=== PATIENT | female | born 1950 | race Caucasian/White ===

== ENCOUNTER 2021-10-18 06:28 | Inpatient (IN) | payer MEDICARE, OTHER ==
[2021-10-12 11:54] LABS: BASOPHILS % (AUTO) 0.8 % (0-1); EOSINOPHILS # (AUTO) 0.2 X10'3 (0-0.9); EOSINOPHILS % (AUTO) 2.5 % (0-6); LYMPHOCYTES # (AUTO) 2.6 X10'3 (1.1-4.8); LYMPHOCYTES % (AUTO) 40.4 % (21-51); MEAN CORPUSCULAR HEMOGLOBIN 29.5 PG (27.0-31.0); MEAN CORPUSCULAR HGB CONC 33.2 g/dL (33.0-36.5); MEAN CORPUSCULAR VOLUME 88.9 FL (78-98); MEAN PLATELET VOLUME 8.1 FL (7.4-10.4); MONOCYTES # (AUTO) 0.6 X10'3 (0-0.9); MONOCYTES % (AUTO) 9.8 % (2-12); NEUTROPHILS % (AUTO) 46.5 % (42-75); PRE OP HEMATOCRIT 42.7 % (35.0-45.0); PRE OP HEMOGLOBIN 14.2 g/dL (12.0-16.0); PRE OP PLATELET COUNT 325 X10'3 (140-440); RED CELL DISTRIBUTION WIDTH 13.7 % (11.5-14.5)
[2021-10-12 12:27] LABS: ALBUMIN/GLOBULIN RATIO 1.3 (1.1-1.5); ALKALINE PHOSPHATASE 86 IU/L (46-116); BLOOD UREA NITROGEN 14 MG/DL (7-18); BUN/CREATININE RATIO 16.5 (6.6-38.0); CALCIUM 9.8 MG/DL (8.5-10.1); CHLORIDE 103 MMOL/L (99-107); CREATININE 0.85 MG/DL (0.40-0.90); PRE OP ALT 32 U/L (30-65); PRE OP ANION GAP 9 (8-16); PRE OP AST 24 U/L (10-37); PRE OP BILIRUB, TOTAL 0.2 MG/DL (0.0-1.0); PRE OP GLUCOSE 93 MG/DL (70-104); PRE OP POTASSIUM 4.5 MMOL/L (3.4-5.1); PRE OP SODIUM 141 MMOL/L (135-145); TOTAL CARBON DIOXIDE 28.9 MMOL/L (24-32); eGFR 66 ML/MIN
[2021-10-18] VITALS (20 sets, daily range): BP systolic 103–131; BP diastolic 54–79
[~2021-10-18] VITALS: Ht 160 cm; Wt 72.6 kg
[~2021-10-18 06:28] MED LIST: LEVO100T PO; MULT-1085 PO; cefazolin/dext.iso 2gm/50ml IV ONE; famotidine 20mg tablet PO ONE; ringers solution, lacted 1,000 ML IV SCH; tranexamic acid 650mg tablet PO ONE; vancomycin 1,500 MG in NS 300ml IV soln IV ONE
[2021-10-18] MEDS ORDERED: ROPIVAcaine 0.5% (5mg/ml) 30ml vial ONE ×2 (08:25→10:28)
[2021-10-18] MEDS ORDERED: FENTANYL CITRATE/PF 50 MCG/1 ML VIAL ONE (08:35)
[2021-10-18] MEDS ORDERED: MIDAZolam 1 MG/ML 5ML VIAL ONE (08:35)
[2021-10-18] MEDS ORDERED: propofol inj 20 ML IV ONE (08:38)
[2021-10-18] MEDS ORDERED: ePHEDrine 50MG/ML INJ. ONE (10:28)
[2021-10-18] MEDS ORDERED: dexamethasone sod phosphate 4mg/ml inj. ONE (10:28)
[2021-10-18] MEDS ORDERED: ondansetron/PF 4mg/2ml inj ONE (10:29)
[2021-10-18] MEDS ORDERED: ondansetron/PF 4mg/2ml inj IV PRN ×2 (10:30→11:10)
[2021-10-18] MEDS ORDERED: meperidine/PF 25mg/ml syringe IV PRN ×3 (10:30)
[2021-10-18] MEDS ORDERED: proCHLORperazine 10 MG/2 ml inj IV PRN (10:30)
[2021-10-18] MEDS ORDERED: morphine 2 MG/ML inj. syringe IV PRN (10:30)
[2021-10-18] MEDS ORDERED: ROPIVAcaine 0.2% (10 MG/5 ML) BOLUS INJECTION INTERSCALE PRN (10:30)
[2021-10-18] MEDS ORDERED: ringers solution, lacted 1,000 ML IV SCH (10:30)
[2021-10-18] MEDS ORDERED: morphine 4 MG/ML inj SYRINge IV PRN (10:30)
[2021-10-18] MEDS ORDERED: ROPIVAcaine 0.2%/PF PUMP/bolus 545 ML INTERSCALE SCH (11:00)
[2021-10-18] MEDS ORDERED: magnesium hydroxide 30ml (MOM) UD suspension PO PRN (11:10)
[2021-10-18] MEDS ORDERED: HYDROcodone/acetaminophen 10/325mg tab PO PRN (11:10)
[2021-10-18] MEDS ORDERED: HYDROmorphone 1 mg/ml syringe IV PRN (11:10)
[2021-10-18] MEDS ORDERED: HYDROmorphone inj. 0.5 MG/0.5 ML DISP.SYRIN IV PRN (11:10)
[2021-10-18] MEDS ORDERED: oxyCODONE IR 5mg (immed. release) tablet PO PRN ×2 (11:10)
[2021-10-18] MEDS ORDERED: bisacodyl 10mg suppository rectal RC PRN (11:10)
[2021-10-18] MEDS ORDERED: acetaminophen 325mg tablet PO PRN (11:10)
[2021-10-18] MEDS ORDERED: diphenhydrAMINE 25mg capsule PO PRN ×2 (11:10)
[2021-10-18] MEDS: potassium cl 20mEq in 1/2 NS 1,000 ML IV SCH ×2 (11:10→19:10)
--- NOTE | 2021-10-18 11:17 | NUR ---
Received from OR via , accompanied by Anesthesiologist DR ESCALANTE and report given by Anesthesiolgist. AWAKENS TO VOICE. VITALS STABLE. DRESSING DI. TREVOR PAIN. LUE IN A SIMPLE SLING.
--- NOTE | 2021-10-18 12:48 | NUR ---
Report called to receiving nurse. Transferred via BED Belongings . Special Issues communicated to receiving nurse.AWAKE AND ORIENTED. VITALS STABLE. DRESSING DI. TREVOR PAIN. TO SURGICAL RM 355B AT THIS TIME.
[2021-10-18] MEDS: acetaminophen 325mg tablet PO SCH ×2 (14:00→21:16)
[2021-10-18] MEDS: ceFAZolin/D5W- 1GM premix 50 ML IV SCH ×2 (16:33→23:31)
--- NOTE | 2021-10-18 18:15 | NUR ---
Patient in room [facility]. I have received report from Ayaan RODRIGUEZ and had the opportunity to ask questions and assume patient care.
[2021-10-18] MEDS ORDERED: VANCOMYCIN 1GM/200ML IVPB 200 ML IV SCH (20:00)
[2021-10-18] MEDS ORDERED: sennosides 8.6mg tablet PO SCH (21:00)
[2021-10-19] VITALS: BP 118/64
[2021-10-19] MEDS: acetaminophen 325mg tablet PO SCH ×3 (02:11→14:40)
[2021-10-19] MEDS: potassium cl 20mEq in 1/2 NS 1,000 ML IV SCH ×2 (03:10→08:40)
[2021-10-19 04:00] VITALS: BP 125/66
[2021-10-19 06:08] LABS: EOSINOPHILS % (AUTO) 0.1 % (0-6); MEAN CORPUSCULAR HGB CONC 32.2 g/dL (33.0-36.5)
[2021-10-19 06:11] LABS: BASOPHILS % (AUTO) 0.3 % (0-1); HEMATOCRIT 38.5 % (35.0-45.0); HEMOGLOBIN 12.4 g/dl (12.0-16.0); LYMPHOCYTES # (AUTO) 2.8 X10'3 (1.1-4.8); LYMPHOCYTES % (AUTO) 18.9 % (21-51); MEAN CORPUSCULAR HEMOGLOBIN 29.2 PG (27.0-31.0); MEAN CORPUSCULAR VOLUME 90.8 FL (78-98); MEAN PLATELET VOLUME 8.3 FL (7.4-10.4); MONOCYTES # (AUTO) 1.8 X10'3 (0-0.9); MONOCYTES % (AUTO) 12.3 % (2-12); NEUTROPHILS % (AUTO) 68.4 % (42-75); PLATELET COUNT 263 X10'3 (140-440); RED BLOOD COUNT 4.24 X10'6 (4.20-5.60); RED CELL DISTRIBUTION WIDTH 13.6 % (11.5-14.5); WHITE BLOOD COUNT 14.6 X10'3 (4.5-11.0)
[2021-10-19 06:30] LABS: ANION GAP 13 (8-16); CHLORIDE 106 MMOL/L (99-107); POTASSIUM 4.4 MMOL/L (3.5-5.1); SODIUM 140 MMOL/L (135-145); TOTAL CARBON DIOXIDE 21.5 MMOL/L (24-32)
--- NOTE | 2021-10-19 06:45 | NUR ---
Patient in room [facility]A. I have received report from JENNIFER NORIEGA and had the opportunity to ask questions and assume patient care.
--- NOTE | 2021-10-19 06:46 | NUR ---
Problems reprioritized. Patient report given, questions answered & plan of care reviewed with Jeri RODRIGUEZ.
[2021-10-19 07:00] VITALS: BP 96/52
[2021-10-19 07:10] VITALS: BP_SYST 100; BP_SYST 45; BP_SYST 67; BP_DIAS 29; BP_DIAS 44; BP_DIAS 60
[2021-10-19] MEDS ORDERED: normal saline 1000ml 1,000 ML IV ONE (07:20)
[2021-10-19] MEDS ORDERED: acetaminophen w/codeine (30MG) #3 tablet PO PRN (07:20)
[2021-10-19] MEDS ORDERED: multivitamins, therapeutics tablet PO SCH (08:00)
[2021-10-19] MEDS ORDERED: levoTHYROXINE 100mcg tablet PO SCH (08:00)
[2021-10-19] MEDS ORDERED: aspirin 325mg tablet PO SCH (08:30)
[2021-10-19 11:00] VITALS: BP 101/52
--- NOTE | 2021-10-19 15:19 | NUR ---
Pt s/p left TSA seen at bedside provided with written and verbal protein education. Pt endorses a good appetite which is evident with documented 75-100% PO intake on regular diet meeting estimated nutrient needs. Pt states she is getting full from meals and denies food allergies. Pt reports h/o difficulty swallowing solid foods though denies need for texture modification and states she has previously seen a speech therapist for a swallow study whom she will f/u with if needed. Pt provided with RD contact information and encouraged to reach out if needed. Will remain available. Addendum: 10/19/21 at [address] Amended: Links added.
--- NOTE | 2021-10-19 18:10 | NUR ---
PATIENT STABLE AND APPROPRIATE FOR DISCHARGE, IV TAKEN OUT, EDUCATION GIVEN, FULL ON-Q BALL GIVEN, ALL BELONGINGS SENT WITH PATIENT, PATIENT TAKEN TO LOBBY BY WHEELCHAIR TO AN AWAITING CAR WHERE WILL TAKE PATIENT HOME
[2021-10-20] MEDS ORDERED: acetaminophen 325mg tablet PO PRN (11:10)
== END 2021-10-19 18:09 | disposition home or self-care (01) | DRG 483 ==
LOC: PAS IN 06:28 → SUR 3N 13:04
PROVIDERS: ADMIT Orthopaedic Surgery; ATTEND Orthopaedic Surgery
PROC: 0LS40ZZ Reposition Left Upper Arm Tendon, Open Approach (ICD-10-PCS; 2021-10-18)
PROC: 0RRK0JZ Replacement of Left Shoulder Joint with Synthetic Substitute, Open Approach (ICD-10-PCS; principal; 2021-10-18 09:07)
DX: M19.012 Primary osteoarthritis, left shoulder (principal); M25.712 Osteophyte, left shoulder; M65.812 Other synovitis and tenosynovitis, left shoulder; G89.29 Other chronic pain; Z20.822 Contact with and (suspected) exposure to COVID-19
CPT/HCPCS: 36415; 80051; 80053; 82948; 85025; 87081; 97110; 97116; 97161; 97530; A4618; A7000; C1713; C1776; G0378; J0690; J1100; J2250; J2405; J2704; J2795; J3010; J3370; J3480; J3490; J7030; J7040; J7120; U0003; U0005